=== PATIENT | female | born 1940 | race Caucasian/White ===

== ENCOUNTER 2017-04-05 13:16 | Emergency (ER) | payer MEDICARE, MEDICAID ==
[~2017-04-05] VITALS: Ht 162.6 cm; Wt 81.8 kg
[2017-04-05] VITALS (8 sets, daily range): BP systolic 85–126; BP diastolic 44–94; PULSE 70–82; RESP 12–19; O2SAT 93–98
[~2017-04-05 13:16] MED LIST: MULT-1018 PO; OMEP20TA86 PO
[2017-04-05] MEDS ORDERED: Ondansetron 8 mg ODT Tablet ONE (13:34)
--- NOTE | 2017-04-05 13:55 | ED.REPORT ---
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 Associated symptoms include dizziness, fatigue, chills, shakes, and vomiting. She denies headache, numbness or tingling , focal weakness, diarrhea, chest pain, SOB, or any other symptoms. She has been drinking 2 quarts of alkaline water and taking natural pills as cleanse. She does not take any prescription medications. Patient is a difficult historian. Nursing Notes Stated Complaint: NAUSEA/VOMITING/RIGHT GROIN PAIN Chief Complaint: General Complaint Nursing Notes Reviewed: Yes Allergies: Coded Allergies: Sulfa (Sulfonamide Antibiotics) (Unverified Allergy, Unknown, Family allergic to it, 04/05/17) codeine (Verified Allergy, Unknown, prefers to avoid, 04/05/17) latex (Verified Allergy, Unknown, rash, 04/05/17) mercury (elemental) (Verified Allergy, Unknown, "jittery", 04/05/17) Scheduled Multivitamin (Multi Vitamin Daily) 1 Each Tablet 1 EACH PO DAILY Omeprazole (Omeprazole) 20 Mg Tablet.dr 20 MG PO DAILY General Time Seen by MD: 13:54 Chief Complaint Other (R groin pain ) Hx Obtained From: Patient Arrived By: Walk-in Sudden in Onset?: Yes Onset Occurred: 1 - 4 hours ago Symptom Duration: Since onset Quality: Painful Severity: Current: Moderate Severity: Maximum: Moderate Associated with: Reports: Vomiting Additional Notes: dizziness, fatigue Pertinent Negative: Pt denies other symptoms Recent Healthcare: Recent doctor visit Similar Sx Previous: No Risk Factors )( AAA Risk Stratification No Hypertension, No Prior AAA Risk factors reviewed Past Medical History Past Medical History Uterine cancer Deneis hx of [place] Unspecified bladder problem GERD DJD low back and c-spine injury Past Surgical History Uterus removal due to uterine cancer RAJAN/BSO Smoking History Never Smoker Social History Alcohol Use: Denies alcohol use Other Social History: Good social support Ambulatory Status Independent Review of Systems +groin pain -tingling Constitutional: Reports: Chills, Fatigue Respiratory: Denies: Shortness of breath Cardiovascular: Denies: Chest pain GI: Reports: Vomiting, Denies: Diarrhea Complete sys rev & neg: except as marked. Neurologic: Reports: Dizziness, Shaking, Denies: Headache, Numbness, Weakness Physical Exam Vital Signs Vital Signs (First) Date Time Temp Pulse Resp B/P Pulse Ox O2 Delivery O2 Flow Rate FiO2 04/05/17 13:22 36.9 75 16 123/80 98 Room Air Initial VS: Reviewed, Vital signs normal Head / Eyes: Atraumatic, Normocephalic Neck: Full range of motion Skin: Warm, Dry Neurologic: Alert, Oriented, Nonfocal Psychiatric: Mood/affect normal, Behavior normal, Normal thought content General/Constitutional: Awake, Alert Respiratory / Chest: Atraumatic, Breath sounds NL, Breath sounds = bilat, No respiratory distress Cardiovascular: Heart rate NL, Regular rhythm, Heart sounds NL, Peripheral circulation NL 2+ DP pulses bilaterally Abdomen: Atraumatic, Soft RLQ abdominal/ pelvic pain with some guarding Back: Atraumatic Interpretation & Diagnostics Lab Results Interpretation Result Diagram: 04/05/17 1430 Test 04/05/17 14:30 White Blood Count 12.2th/mm3 (3.8-10.1) Red Blood Count 4.04mil/mm3 (3.90-5.20) Hemoglobin 13.2g/dL (12.0-15.6) Hematocrit 39.1% (35.0-46.0) Mean Corpuscular Volume 96.8fL (81-100) Mean Corpuscular Hemoglobin 32.7pg (27.0-35.0) Mean Corpuscular Hemoglobin Concent 33.8% (32.0-37.0) Red Cell Distribution Width 13.2% (12.3-15.4) Platelet Count 141bil/L (150-400) Neutrophils (%) (Auto) 93.6% (40-74) Lymphocytes (%) (Auto) 1.6% (14-46) Monocytes (%) (Auto) 4.5% (4-12) Eosinophils (%) (Auto) 0% (0-5) Basophils (%) (Auto) 0.1% (0-3) ECG Interpretation ECG Interpretation: Sinus rate 73 Atrial premature complex Time: 14:19 Interpreted by: ED physician Discharge & Departure Shift Change Sign-Out Patient Care Transferred: Yes Discussed Complaint(s): Yes Laboratory Evaluation: Ordered, not yet done Imaging Studies: Ordered, not yet done Transfer of care to Dr. Kelly at 1500. Primary Impression: RLQ abdominal pain Discharge Condition All VS Reviewed: Yes Condition: Stable Referrals: Denae Gage MD (PCP) Care Transferred to: Dr. Kelly Care Transferred at: 15:00 Scribe Attestation Portions of this note were transcribed by David Oviedo. I, Dr. Mcgee personally performed the history, physical exam and medical decision-making; I reviewed and confirmed the accuracy of the information in the transcribed note. Signed by: Bindu Vidal, 04/05/17 copies to: Denae Gage MD, Timothy S DO Apr 05, 2017 13:55 DAVID OVIEDO Apr 05, 2017 14:05 Luke Mcgee DO Apr 05, 2017 13:55 DAVID OVIEDO Apr 05, 2017 14:05
[2017-04-05] MEDS ORDERED: HYDROmorphone 0.5 mg/0.5 mL iSecure Syringe IVPUSH PRN (14:10)
[2017-04-05] MEDS ORDERED: 0.9% Sodium Chloride 1,000 ML IV ONE ×2 (14:10→18:55)
[2017-04-05] MEDS ORDERED: Ondansetron 2 mg/mL 2 mL Inj IVPUSH PRN (14:10)
[2017-04-05 14:49] LABS: BASOPHILS % (AUTO) 0.1 % (0-3); EOSINOPHILS % (AUTO) 0 % (0-5); MONOCYTES % (AUTO) 4.5 % (4-12); Mean Corpuscular Hemoglobin 32.7 pg (27.0-35.0); Mean Corpuscular Volume 96.8 fL (81-100); NEUTROPHILS % (AUTO) 93.6 % (40-74); Platelet Count 141 bil/L (150-400)
[2017-04-05 15:21] LABS: Magnesium 1.7 mg/dL (1.6-2.6)
--- NOTE | 2017-04-05 16:46 | DRSVH ---
PROCEDURE: CT ABDOMEN AND PELVIS WITH CONTRAST ([id number]) INDICATIONS: rlq pain, sudden onset TECHNIQUE: After the administration of intravenous contrast, 5 mm thick sections acquired from the diaphragm to the symphysis. 5 mm coronal and sagittal reformats were acquired. For radiation dose reduction, the following was used: automated exposure control, adjustment of mA and/or kV according to patient aaron renee COMPARISON: [facility], CT, CT ANGIO CHEST PE, 01/25/2016, 2:14. FINDINGS: Image quality: Excellent. ABDOMEN: Lung bases: Partially visualized 3 mm subpleural nodule in the right middle lobe, probably unchanged since 01/25/16. There is a moderate hiatal hernia. Solid organs: Liver and spleen are normal in size and enhancement. Gallbladder demonstrates inciden goldie phrygian cap, anatomic variant otherwise unremarkable. Biliary system is non dilated. Pancreas enhances normally. No adrenal nodules. Kidneys demonstrate bilateral parapelvic cysts. No hydroneph rosis. Nonobstructive left renal calculus measuring 1 mm image 37 series 2. Peritoneum and bowel: Bowel loops demonstrate normal wall thickness and caliber. No free fluid or a ir. The appendix appears normal. The rectum contains a large amount of dense stool reasonable stabil ity of constipation or fecal impaction. Scattered colonic diverticula are present. Nodes and vessels: No retroperitoneal or mesenteric adenopathy by size criteria. Aorta and inferior vena cava are normal in size. Miscellaneous: No ventral hernias. PELVIS: Genitourinary: Bladder wall thickness is normal. Miscellaneous: No inguinal hernias. Shotty bilateral inguinal lymph nodes without definite pathologi c enlargement, nonspecific.. Bones: No suspicious bony lesions. No vertebral body compression fractures. There is diffuse osteo penia IMPRESSION: Normal appendix. No acute abnormality identified. Large amount of stool seen within the rectal vault raise the possibility of fecal impaction/constipat ion. Bilateral parapelvic cysts. Moderate hiatal hernia Dictated by: Roger Aviles M.D. on 04/05/2017 at 15:37 Approved by: Roger Aviles M.D. on 04/05/2017 at 15:44
[2017-04-05 18:10] LABS: APPEARANCE,URINE CLEAR (CLEAR,HAZY); COLOR,URINE YELLOW (YELLOW); OCCULT BLOOD,URINE SMALL (NEGATIVE); UROBILINOGEN,URINE NORMAL (NORMAL)
--- NOTE | 2017-04-05 19:34 | DRSVH ---
PROCEDURE: X-RAY CHEST, TWO VIEWS ([id number]) INDICATIONS: cough TECHNIQUE: 2 views of the chest were acquired. COMPARISON: [facility], CR, XR CHEST 1VW (PORTABLE), 01/24/2016, 23:20. FINDINGS: Surgical changes and devices: None. Lungs and pleura: Mild pulmonary radiopacities are present in the retrocardiac left lung base. Lungs otherwise clear. No pleural effusion or pneumothorax. Mediastinum: Mediastinal contours are normal. Heart size is normal. Bones and chest wall: No suspicious bony abnormalities. Soft tissues appear unremarkable. IMPRESSION: Mild left basilar radiopacities. Differential considerations include atelectasis, aspirat ion, and infection. Dictated by: Kacey Gonzalez M.D. on 04/05/2017 at 19:31 Approved by: Kacey Gonzalez M.D. on 04/05/2017 at 19:32
[2017-04-05] MEDS ORDERED: _Azithromycin 250 mg Tablet PO SCH (20:10)
[2017-04-05] MEDS ORDERED: _HYDROcodone/APAP 5-325 mg Tablet PO PRN (20:25)
== END 2017-04-05 21:03 | disposition home or self-care (01) ==
LOC: SED 13:16
DX: R10.31 Right lower quadrant pain (principal); R42 Dizziness and giddiness; R53.83 Other fatigue; R11.10 Vomiting, unspecified; J98.11 Atelectasis; K21.9 Gastro-esophageal reflux disease without esophagitis; C54.1 Malignant neoplasm of endometrium; Z88.2 Allergy status to sulfonamides; Z88.5 Allergy status to narcotic agent; Z88.8 Allergy status to other drugs, medicaments and biological substances; Z91.040 Latex allergy status
CPT/HCPCS: 36415; 71020; 74177; 80053; 81000; 81002; 82962; 83605; 83690; 83735; 85025; 93005; 96361; 96374; 99285; G0463; J1170; J7030; Q9967